=== PATIENT | female | born 1950 ===

== ENCOUNTER 2018-06-13 07:14 | Day surgery (SDC) | payer MEDICARE, MEDICAID ==
[2018-06-13] VITALS (9 sets, daily range): BP systolic 124–149; BP diastolic 69–77
[~2018-06-13] VITALS: Ht 157.5 cm; Wt 59.0 kg
--- NOTE | 2018-06-13 06:11 | Anethesia Preoperative Eval ---
Anesthesia Pre-op PMH/ROS General Date of Evaluation: Jun 13, 2018 Time of Evaluation: 06:10 Anesthesiologist: jaquelin ASA Score: ASA 3 Mallampati Score Class I : Soft palate, uvula, fauces, pillars visible Class II: Soft palate, uvula, fauces visible Class III: Soft palate, base of uvula visible Class IV: Only hard plate visible Mallampati Classification: Class II Surgeon: jesse Diagnosis: blepharoplasty Surgical Procedure: bleph Anesthesia History: none Family History: no anesthesia problems Allergies: Coded Allergies: No Known Allergies (Unverified , 06/12/18) Medications: see eMAR Past Medical History Cardiovascular: Reports: HTN Anesthesia Pre-op Phys. Exam Physician Exam Last Vital Signs Date Time Temp Pulse Resp B/P (MAP) Pulse Ox O2 Delivery O2 Flow Rate FiO2 06/13/18 08:23 97.9 53 20 144/77 (99) 100 97.9 06/13/18 08:14 Room Air Constitutional: NAD Neurologic: CN 2-12 intact Cardiovascular: RRR Respiratory: CTA Gastrointestinal: S/NT/ND Airway Exam Mallampati Score: Class II MO: full Neck: flexible TMD: 2fb ROM: full Anesthesia Pre-op A/P Risk Assessment & Plan Assessment: asa3 Plan: mac Status Change Before Surgery: No Pre-Antibiotics Drug: Harper Blackman MD Jun 13, 2018 06:11
[~2018-06-13 07:14] MED LIST: Atropine Inj 1mg/10ml Syr IV PRN; Bupivacaine 0.75% 30ml vial INJ ONE; DiphenhydrAMINE 50mg/ml Inj IVP PRN; LR 1000ml 1,000 ML IVLG SCH; Lidocaine 2% 20mg/ml/Epi 0.005mg/ml 20ml vial ONE; Maxitrol Opth Oint 3.5gm ONE; Midazolam 2mg/2ml Inj IVP PRN; Tetracaine 0.5% Opth 4ml Soln ONE; fentaNYL 100 mcg/2 mL IV PRN
[2018-06-13] MEDS ORDERED: NKM (08:18)
[2018-06-13] MEDS ORDERED: LEVOTHYROXINE75 MCG ORAL (08:29)
[2018-06-13] MEDS ORDERED: LOSARTAN POTASS25 MG ORAL (08:29)
[2018-06-13] MEDS ORDERED: Propofol 200mg/20ml IV ONE (08:30)
[2018-06-13] MEDS ORDERED: LR 1000ml ONE (08:30)
[2018-06-13] MEDS ORDERED: Akten 3.5% 1ml Btl BOTH EYES SCH (08:30)
[2018-06-13] MEDS ORDERED: fentaNYL 100 mcg/2 mL IV ONE (08:30)
[2018-06-13] MEDS ORDERED: Midazolam 2mg/2ml Inj ONE (08:30)
[2018-06-13] MEDS ORDERED: Maxitrol Opth Oint 3.5gm BOTH EYES ONE (08:30)
[2018-06-13] MEDS ORDERED: Lidocaine 1% MPF 10mg/ml 5ml ONE (08:30)
[2018-06-13 08:44] LABS: BASOPHILS % (AUTO) 1.2 % (0.0-2.0); EOSINOPHILS % (AUTO) 3.8 % (0.0-3.0); HEMATOCRIT 42.1 % (37.0-47.0); HEMOGLOBIN 14.6 G/DL (12.0-16.0); LYMPHOCYTES % (AUTO) 37.4 % (20.0-45.0); MEAN CORPUSCULAR VOLUME 90 FL (80-99); MONOCYTES % (AUTO) 7.6 % (1.0-10.0); NEUTROPHILS % (AUTO) 50.1 % (45.0-75.0); PLATELET COUNT 177 K/UL (150-450); RED BLOOD COUNT 4.67 M/UL (4.20-5.40); RED CELL DISTRIBUTION WIDTH 10.7 % (11.6-14.8); WHITE BLOOD COUNT 4.4 K/UL (4.8-10.8)
[2018-06-13 08:51] LABS: ANION GAP 8 mmol/L (5-15); BLOOD UREA NITROGEN 14 mg/dL (7-18); CALCIUM 9.5 MG/DL (8.5-10.1); CARBON DIOXIDE 27 MMOL/L (21-32); CHLORIDE 105 MMOL/L (98-107); CREATININE 0.8 MG/DL (0.55-1.30); POTASSIUM 3.5 MMOL/L (3.5-5.1); SODIUM 140 MMOL/L (136-145)
[2018-06-13] MEDS ORDERED: Povidone-Iodine 5% opth solution ONE (08:55)
--- NOTE | 2018-06-13 10:27 | Discharge Summary ---
Discharge Summary Discharge Summary Discharge Summary DATE OF ADMISSION: DATE OF DISCHARGE: REASON FOR HOSPITALIZATION: SURGERY PERFORMED: CONDITION IN THE HOSPITAL:The patient tolerated the surgery without complications. DISCHARGE CONDITION: The patient was stable at discharge. DISCHARGE MEDICATIONS: 1. Vigamox eye drops one drop q.i.d, 2. Prednisolone one drop q.i.d, 3. POSTOPERATIVE ORDERS: The patient has to rest at home. No bending, No lifting, No watching Television tonight. POSTOPERATIVE FOLLOW UP: The patient will be followed in my office tomorrow morning at 7 o'clock. Michael Peterson MD Jun 13, 2018 10:27
--- NOTE | 2018-06-13 10:27 | Discharge Summary ---
Discharge Summary Discharge Summary Discharge Summary DATE OF ADMISSION: 06/13/18 DATE OF DISCHARGE: 06/13/18 REASON FOR HOSPITALIZATION: Ptosis, blepharochlasis, dermatochalasis, entropion , upper lids SURGERY PERFORMED: 1- Ptosis correction 2-Entropion correction 3- Blepharoptosis OU CONDITION IN THE HOSPITAL:The patient tolerated the surgery without complications. DISCHARGE CONDITION: The patient was stable at discharge. DISCHARGE MEDICATIONS: 1. Vigamox eye drops one drop q.i.d, OU 2. Prednisolone one drop q.i.d, OU 3. Keflex 500 mg q8h 4- Maxitrol eye ointment apply to lids, OU POSTOPERATIVE ORDERS: The patient has to rest at home. No bending, No lifting, No watching Television tonight. POSTOPERATIVE FOLLOW UP: The patient will be followed in my office tomorrow morning at 7 o'clock. Michael Peterson MD Jun 13, 2018 10:27
--- NOTE | 2018-06-13 10:34 | Brief Operative Note ---
Immediate Post Operative Note Operative Note Chief Complaint: Droopy eyelids, difficulty reading and driving, OU Pre-op Diagnosis: 1- Ptosis, bilateral 2- Blepharoptosis, Dermatochalasis, OU 3- Entropion, upper lids Procedure: 1- Ptosis correction, upper lids 2- Entropion correction, upper lids 3- Blepharoplasty, upper lids Post-op Diagnosis: same as pre-op Surgeon: Reina Peterson MD. Fitter Armament: None Additional Surgeons: None Anesthesiologist: Dr. Naylor Anesthesia: local, MAC Specimen: none Complications: yes Condition: stable Fluids: 500ml Estimated Blood Loss: none Drains: none Implant(s) used?: No Michael Peterson MD Jun 13, 2018 10:34
--- NOTE | 2018-06-13 10:41 | Immediate Post-Op Evaluation ---
Immediate Post-Op Evalulation Immediate Post-Op Evalulation Procedure: bilateral blepharoplasty, ptosis repair, extropion repair Date of Evaluation: Jun 13, 2018 Time of Evaluation: 10:32 IV Fluids: 300ml lr Blood Products: none Estimated Blood Loss: negligible Blood Pressure Systolic: 149 Blood Pressure Diastolic: 77 Pulse Rate: 60 Respiratory Rate: 18 O2 Sat by Pulse Oximetry: 99 Temperature (Fahrenheit): 97.6 Pain Score (1-10): 0 Nausea: No Vomiting: No Complications none Patient Status: awake, reacts, patent Hydration Status: adequate Drug: Harper Blackman MD Jun 13, 2018 10:41
--- NOTE | 2018-06-13 10:43 | 48 Hour Post Anesthesia Eval ---
Post Anesthesia Evaluation Procedure: bilateral blepharoplasty, ptosis repair, intropion repair Date of Evaluation: Jun 13, 2018 Time of Evaluation: 10:41 Blood Pressure Systolic: 148 0: 74 Pulse Rate: 59 Respiratory Rate: 18 Temperature (Fahrenheit): 97.6 O2 Sat by Pulse Oximetry: 99 Airway: patent Nausea: No Vomiting: No Pain Intensity: 0 Hydration Status: adequate Cardiopulmonary Status: stable Mental Status/LOC: patient returned to baseline Post-Anesthesia Complications: none Follow-up care needed: N/A Harper Laws MD Jun 13, 2018 10:43
--- NOTE | 2018-06-13 10:53 | Pre-Procedure Note/Attestation ---
Pre-Procedure Note/Attestation Complete Prior to Procedure Planned Procedure: bilateral Procedure Narrative: 1- Ptosis correction, upper lids 2- Entropion correction, upper lids 3- Blepharoplasty, upper lids Indications for Procedure Pre-Operative Diagnosis: 1- Ptosis, bilateral 2- Blepharoptosis, Dermatochalasis, OU 3- Entropion, upper lids Attestation I attest that I discussed the nature of the procedure; its benefits; risks and complications; and alternatives (and the risks and benefits of such alternatives ), prior to the procedure, with the patient (or the patient's legal product support representative). I attest that, if there was a reasonable possibility of needing a blood transfusion, the patient (or the patient's legal product support representative) was given the [place] Department [employer] Services standardized written summary, pursuant to the [place] Blood Safety Act ([place] Health and Safety Code # 1645, as amended). I attest that I re-evaluated the patient just prior to the surgery and that there has been no change in the patient's H&P, except as documented below: iMchael Peterson MD Jun 13, 2018 10:53
--- NOTE | 2018-06-14 04:45 | Operative Note - Dictated ---
DATE OF OPERATION: 06/13/2018 FACILITY: [facility]. SURGEON: Michael Peterson M.D. CLINICAL INFORMATICS SPECIALIST: None. ANESTHESIOLOGIST: Dr. Rajan. ANESTHESIA: Monitored anesthesia care (MAC) plus local anesthesia with lidocaine 2% with epinephrine 1:100,000 with Marcaine 0.75% mixture . PREOPERATIVE DIAGNOSES: 1. Ptosis, upper lids. 2. Entropion, upper lids. 3. Dermatochalasis and blepharochalasis, upper lids. POSTOPERATIVE DIAGNOSES: 1. Ptosis, upper lids. 2. Entropion, upper lids. 3. Dermatochalasis and blepharochalasis, upper lids. SURGERY PERFORMED: 1. Ptosis correction, upper lids. 2. Entropion correction, upper lids. 3. Blepharoplasty, upper lids. INDICATION FOR SURGERY: The patient is a 68-year-old lady with history of hypertension, tachycardia, hypothyroidism. She is taking medications including levothyroxine, propranolol, and amlodipine. She is not drinker and she is not a smoker. She drinks occasionally. She is not allergic to any medications. She is complaining of blurry vision and difficulty driving because of upper lids droopiness. She is suffering from severe blepharochalasis with ptosis and entropion. This is a progressive dermatochalasis skin disease which results in change in the corneal curvature and induces astigmatism and covers visual axis which is interruption for driving. The severity of the patient's dermatochalasis, ptosis, entropion is clearly demonstrated on the enclosed photos and the patient's visual rehman. The only solution for this patient is correction of all this disfigurement and anatomic changes with surgery. There is no alternative. INFORMED CONSENT: The nature of the surgery, risks, benefits, and potential complications were all explained to the patient in detail in her language, Farsi. She voiced understanding. The potential complications including, but not limited to bleeding, infection, corneal exposure, overcorrection, undercorrection, ecchymosis, swelling of the face, hematoma, dry eye syndrome, loss of eyelashes, loss of eyebrows, inequality of both eyes, change in vision, loss of vision, and even loss of the eye were all explained in detail to the patient who voiced understanding and accepted all the complications. Then she signed consent form which is in the chart. DESCRIPTION OF SURGERY AND FINDINGS: Following that, the patient was taken to the operation room in a stable condition. Lidocaine gel, Akten 3.5% were applied to the conjunctiva of both eyes. Following that, the upper lids were marked with marking pen 10 mm above the root of the eyelashes and 15 mm below the lower part of the eyebrows. About 25 mm of the skin was left to facilitate eye closure. IV sedation was given by the anesthesiologist, Dr. Rajan. After adequate anesthesia and sedation had been achieved, the upper eyelids were anesthetized with 2% lidocaine mixed with Marcaine 0.75%. Following that, using the Bovie knife, the skin and subdermal tissue were dissected from the orbicularis oculi muscle and excised. Following that, hemostasis was performed. Following that, a cut was made in the orbicularis oculi muscle and hemostasis was performed. Two fat compartments were released. The fat compartments were sculptured conservatively. Following that, the levator palpebrae superioris muscle was dissected to the aponeurosis of the muscle and the aponeurosis of the muscle was tacked about 6 mm and stitched with 6-0 Vicryl suture and because the suture was tight, the palpebral suture was compared bilaterally and was equal. Following that, the sutures were trimmed and hemostasis was performed. Following that, a wedge groove was made 3 mm above the root of the upper eyelid lashes. Following that, the tarsal material inside the groove was excised with Vannas scissors. Following that, the lids of it were stitched together with 6-0 Vicryl and the sutures were trimmed and hemostasis was performed. The eyelid border was rotated upward and lashes were turned from downward to upward. Following that, hemostasis was performed and three stitches were placed in the orbicularis oculi muscle. At the end of the surgery, the skin was stitched with plain 6-0 gut in the fashion of continuous running stitch. At the end of the surgery, TobraDex eyedrops were applied to the eyes and Maxitrol ointment was applied to the wounds. Following that, the patient was transferred to the recovery room. In the recovery room, cold compresses were applied to the site of the surgery. The surgery sites were checked for bleeding. There was no bleeding. Postop orders and directions were given to the patient. The patient will be discharged home upon stabilization. The patient will be followed in my office tomorrow morning. Michael Peterson M.D. DR: Alanis JOB#: [id number] CC:
--- NOTE | 2018-06-15 19:05 | Cardiology Report ---
APPROVED REPORT EKG Measurement Heart [id number] Sinus bradycardia T wave abnormality, consider anterior ischemia Abnormal ECG
== END 2018-06-13 12:05 | disposition home or self-care (01) ==
LOC: SUR 07:14
DX: H02.403 Unspecified ptosis of bilateral eyelids (principal); H02.834 Dermatochalasis of left upper eyelid; H02.831 Dermatochalasis of right upper eyelid; H02.34 Blepharochalasis left upper eyelid; H02.31 Blepharochalasis right upper eyelid; H02.034 Senile entropion of left upper eyelid; H02.031 Senile entropion of right upper eyelid; I10 Essential (primary) hypertension; E03.9 Hypothyroidism, unspecified; R00.1 Bradycardia, unspecified
CPT/HCPCS: 15823; 36415; 67924; 80048; 85025; 93005; J2250; J2704; J3010; J3490; 94003; 94150